=== PATIENT | female | born 1995 | race Caucasian/White ===

== ENCOUNTER → 2017-11-23 09:15 | Outpatient (CLI) | payer OTHER, SELFPAY | PROVIDERS: PCP Family Medicine; Visit Provider Nurse Practitioner Family | DX: J06.0 Acute laryngopharyngitis (principal) ==

== ENCOUNTER → 2017-12-02 08:07 | Outpatient (CLI) | payer OTHER, SELFPAY ==
[2017-12-02 09:08] LABS: Hematocrit 41.1 % (36-46); Hemoglobin 13.8 g/dL (12.0-16.0); Mean Corpuscular HGB Conc 33.7 % (30-36); Mean Corpuscular Hemoglobin 29.7 PG (26-34); Mean Corpuscular Volume 88.1 fL (80-100); Platelet Count 188 X10^3/uL (150-400); Red Blood Cell Count 4.66 X10^6/uL (4.0-5.2); Red Cell Distribution Width 13.1 % (11.6-14.8); White Blood Cell Count 13.2 X10^3/uL (4.5-11.0)
[2017-12-02 09:09] LABS: Add Manual Diff / Slide Review YES
[2017-12-02 09:16] LABS: Alanine Aminotransferase 418 IU/L (9-52); Albumin 4.3 g/dL (3.5-5.0); Albumin Globulin Ratio 1.2 (1.0-2.8); Alkaline Phosphatase 221 U/L (38-126); Aspartate Aminotransferase 232 IU/L (14-36); BUN Creatinine Ratio 12.5 (6-22); Bilirubin Total 1.2 mg/dL (0.2-1.3); Blood Urea Nitrogen 10 mg/dL (7-17); Carbon Dioxide 29 mmol/L (22-32); Chloride 101 mmol/L (98-107); Cholesterol 165 mg/dL (140-199); Estimated Glomerular Filt Rate > 60.0 mL/min (>60); Globulin 3.5 g/dL (1.7-4.1); Glucose 88 mg/dL (70-100); HDL Cholesterol 43 mg/dL (40-60); HEMOLYSIS < 15 (0-50); LDL Cholesterol Calculated 104 mg/dL (<100); Sodium 139 mmol/L (137-145); Total Protein 7.8 g/dL (6.3-8.2); Triglycerides 91 mg/dL (35-150)
[2017-12-02 09:23] LABS: Urine Amphetamines Negative (Negative); Urine Barbiturates Negative (Negative); Urine Benzodiazepines Negative (Negative); Urine Cocaine Negative (Negative); Urine MDMA Negative (Negative); Urine Methadone Negative (Negative); Urine Methamphetamines Negative (Negative); Urine Morphine/Opi cutoff 2000 Negative (Negative); Urine Oxycodone Negative (Negative); Urine Phencyclidine Negative (Negative); Urine Tetrahydrocannabinol Negative (Negative); Urine Tricyclic Antidepressant Negative (Negative)
[2017-12-02 09:28] LABS: Neutrophils Absolute Manual 2112 /uL (3000-5900); RBC Morphology Normal Morphology; Total Cells Counted 100
[2017-12-02 09:51] LABS: Ferritin 71.7 ng/mL (6.27-137)
== END ==
PROVIDERS: Nurse Practitioner Family; PCP Family Medicine; Visit Provider Naturopath
DX: Z00.00 Encounter for general adult medical examination without abnormal findings (principal); R53.83 Other fatigue; F90.2 Attention-deficit hyperactivity disorder, combined type
CPT/HCPCS: 36415; 80053; 80061; 80305; 82728; 84443; 85025

== ENCOUNTER → 2017-12-06 16:55 | Outpatient (CLI) | payer OTHER, SELFPAY ==
[2017-12-06 18:58] LABS: Monotest Positive (Negative)
== END ==
PROVIDERS: PCP Family Medicine; Visit Provider Naturopath
DX: B27.00 Gammaherpesviral mononucleosis without complication (principal)
CPT/HCPCS: 36415; 86318

== ENCOUNTER → 2017-12-08 15:45 | Outpatient (CLI) | payer OTHER, SELFPAY ==
[2017-12-08 16:53] LABS: Alanine Aminotransferase 168 IU/L (9-52); Albumin 4.4 g/dL (3.5-5.0); Albumin Globulin Ratio 1.2 (1.0-2.8); Alkaline Phosphatase 159 U/L (38-126); Aspartate Aminotransferase 68 IU/L (14-36); Bilirubin Total 0.9 mg/dL (0.2-1.3); Bilirubin Unconjugated 0.7 mg/dL (0.0-1.1); Globulin 3.6 g/dL (1.7-4.1); HEMOLYSIS < 15 (0-50)
== END ==
PROVIDERS: PCP Naturopath; Visit Provider Naturopath
DX: R94.5 Abnormal results of liver function studies (principal)
CPT/HCPCS: 36415; 80076